=== PATIENT | female | born 1985 | race Caucasian/White ===

== ENCOUNTER 2021-06-12 17:42 | Emergency (ER) | payer OTHER, SELFPAY ==
[2021-06-12 17:48] VITALS: BP 150/93; PULSE 108; RESP 16; TEMP 36.8; O2SAT 100
--- NOTE | 2021-06-12 17:58 | ECG_ITS ---
Measurements Intervals [place] Rate: 107 P: 26 DC: 140 QRS: -1 QRSD: 76 T: 30 QT: 313 QTc: 419 Interpretive Statements SINUS TACHYCARDIA LOW QRS VOLTAGE IN PRECORDIAL LEADS [QRS DEFLECTION < 1.0 mV IN CHEST LEADS] ABNORMAL RHYTHM ECG NO PREVIOUS ECG AVAILABLE FOR COMPARISON Electronically Signed On 06-13-2021 17:07:55 CDT by Sorin Laws M.D.
[2021-06-12 17:59] VITALS: BP 150/93; PULSE 108; RESP 16; TEMP 36.8; O2SAT 100
--- NOTE | 2021-06-12 19:01 | ED.URI ---
HPI - URI/Sore Throat General Chief Complaint: Chest Pain Stated Complaint: Cough, chest congestion Time Seen by Provider: 06/12/21 18:52 Source: patient and RN notes reviewed Mode of arrival: ambulatory Limitations: no limitations and clinical condition History of Present Illness HPI Narrative: Patient presents today complaining of cough and chest congestion and tightness since yesterday with rhinorrhea. She also reports a low-grade fever up to 99. Denies shortness of breath or pains in the chest. 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 She took a dose of Tylenol for her elevated temperature. MD elicited complaint: cough Related Data Home Medications Medication Instructions Recorded Confirmed No Home Medications 06/12/21 06/12/21 Allergies Allergy/AdvReac Type Severity Reaction Status Date / Time No Known Allergies Allergy Verified 06/12/21 17:58 Review of Systems Review of Systems: CONSTITUTIONAL: Denies body aches, fever, chills, or sweats. EYES: Denies visual changes, redness, or discharge. ENT: Denies sore throat, or otalgia.+ Nasal congestion, rhinorrhea CARDIOVASCULAR: Denies chest pain, palpitations, or edema. RESPIRATORY: Denies dyspnea. + Cough, chest congestion, chest tightness GASTROINTESTINAL: Denies abdominal pain, nausea, vomiting, or diarrhea. GENITOURINARY: Denies dysuria or hematuria. SKIN: Denies rash, itching, or wounds. MUSCULOSKELETAL: Denies back pain, joint pain, or myalgia. NEUROLOGIC: Denies headache, numbness, tingling, or weakness. PSYCH: Denies depression or anxiety. [facility] Family History Family History Grandparent Family history of lung cancer Social History Social History Smoking status: Never smoker Alcohol intake: never Comments At time of signature, I have reviewed and agree with nursing past medical, surgical, social and family history unless otherwise noted. Please see nursing chart for further information. There is no relevant family history pertinent to the presenting complaint Exam Narrative: GENERAL: Well-appearing, well-nourished, and in no acute distress. HEAD: Normocephalic, atraumatic. EYES: EOMI. No redness or drainage. Conjunctivae normal. ENT: Mucous membranes pink and moist. Nares clear. No rhinorrhea. TMs normal bilaterally. Throat normal. Uvula midline. Moderate amount of postnasal drainage. NECK: Normal AROM. Supple. No lymphadenopathy. CHEST: No respiratory distress. Clear to auscultation. HEART: Regular rate and rhythm. No murmur appreciated. Normal peripheral pulses. EXTREMITIES: Normal range of motion. No edema. SKIN: Warm, dry, no rash. Capillary refill normal. Normal skin turgor. NEURO: No focal deficits. Alert and oriented x3. Gait steady. PSYCH: Normal affect. No signs of depression or anxiety. Course Course Level of Care: Express Care Visit Vital Signs Vital signs: Vital Signs Temperature 98.2 F 06/12/21 17:48 Pulse Rate 108 H 06/12/21 17:48 Respiratory Rate 16 06/12/21 17:48 Blood Pressure 150/93 H 06/12/21 17:48 Pulse Oximetry 100 06/12/21 17:48 Temperature 98.2 F 06/12/21 17:59 Pulse Rate 108 H 06/12/21 17:59 Respiratory Rate 16 06/12/21 17:59 Blood Pressure 150/93 H 06/12/21 17:59 Pulse Oximetry 100 06/12/21 17:59 Reviewed. Pt has been instructed to follow up with her PCP regarding her elevated blood pressure today. MDM - URI/Sore Throat Differential Diagnosis Differential diagnosis: Likely upper respiratory infection and bronchitis ECG Data EKG #1: ECG completion date: 06/12/21 ECG completion time: 18:06 Prior ECG tracings: not available for review Interpretation: Sinus tachycardia. Heart rate 107. TN interval 140 Critical Care Time Critical Care Time Critical Care Time: No Disch
== END 2021-06-12 19:13 | disposition home or self-care (01) ==
PROVIDERS: Emergency Provider Nurse Practitioner; PCP Nurse Practitioner Family
DX: J06.9 Acute upper respiratory infection, unspecified (principal); R00.0 Tachycardia, unspecified
CPT/HCPCS: 93005; 99213; G0463

== ENCOUNTER 2022-07-28 08:16 | Emergency (ER) | payer OTHER, SELFPAY ==
[2022-07-28 08:26] VITALS: BP 141/96; PULSE 87; RESP 16; TEMP 36.5; O2SAT 100
--- NOTE | 2022-07-28 08:27 | ED.EYEPROB ---
HPI - Eye Problem General Chief complaint: Eye Problems Stated complaint: EYE DRAINAGE Time Seen by Provider: 07/28/22 08:27 Source: patient Mode of arrival: ambulatory Limitations: no limitations History of Present Illness HPI Narrative: Sadaf is a 37-year-old female patient presenting to the clinic today with complaints of right eye drainage and itching x 1-2 days. 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 She denies any eye pain or fever. States that she is having yellow drainage coming from the right eye. Patient does wear contacts. Related Data Allergies Allergy/AdvReac Type Severity Reaction Status Date / Time No Known Allergies Allergy Verified 06/12/21 17:58 Review of Systems Review of Systems: Pertinent positives per HPI. Patient denies any fever, chills, rash, headache, visual changes, dizziness, cough, shortness of breath, chest pain, palpitations, nausea, vomiting, diarrhea, constipation, abdominal pain, or any urinary issues. [facility] Family History Family History Grandparent Family history of lung cancer Social History Social History Smoking status: Never smoker Alcohol intake: never Comments At the time of my signature, I reviewed and agree with the nursing past medical, surgical, social, and family history. There is no relevant family history pertinent to the patient complaint. Exam Narrative: General: Well-developed, well nourished, in no apparent distress Head: Normocephalic, atraumatic Eyes: Pupils equally round and reactive to light bilaterally, EOM intact, left sclera and conjunctive clear, red sclera and conjunctiva injected with yellow mucopurulent discharge, right lids mildly swollen Ears: TMs intact and clear, ear canals clear, no drainage, grossly hearing normal. Nose: Nares patent, no discharge, no inflammation, no sinus tenderness. Mouth: Oral pharynx without lesions or masses, good dentition, MMM. Neck: Supple, trachea midline, no enlargement of anterior or posterior cervical nodes, no thyroid masses or goiter palpable. Cardio: Regular rate and rhythm, s1 and s2 normal, no murmur appreciated. Resp: Clear to auscultation bilaterally, no rhonchi, rales, wheezing or rubs Course Course Emergency Course: Portions of this record may have been created with voice recognition software. Level of Care: Express Care Visit Vital Signs Vital signs: Vital Signs Temperature 36.5 C 07/28/22 08:26 Pulse Rate 87 07/28/22 08:26 Respiratory Rate 16 07/28/22 08:26 Blood Pressure 141/96 H 07/28/22 08:26 Pulse Oximetry 100 07/28/22 08:26 Temperature 36.5 C 07/28/22 08:26 Pulse Rate 87 07/28/22 08:26 Respiratory Rate 16 07/28/22 08:26 Blood Pressure 141/96 H 07/28/22 08:26 Pulse Oximetry 100 07/28/22 08:26 Vital signs reviewed MDM - Eye Problem MDM Narrative Medical decision making narrative: At the time of visit patient is resting comfortably on the exam table. I suspect patient has right conjunctivitis. She does wear contact. Instructed to throw her contacts away and not to use new contacts until infection is gone. Will send in prescription for ofloxacin eyedrops. Supportive measures were discussed with the patient she voiced understanding of discharge instructions and agrees to treatment plan. Differential Diagnosis Differential diagnosis: Likely corneal abrasion, conjunctivitis, acute iritis, periorbital cellulitis, subconjunctival hemorrhage and corneal ulcer Discharge Plan Discharge Clinical Impression: Acute conjunctivitis of right eye Qualifiers: Acute conjunctivitis type: bacterial Qualified Code(s): H10.31 - Unspecified acute conjunctivitis, right eye Patient Disposition: Home, Self-Care Condition: Stable Instructions: Antibiotic Form, Conjunctivitis (ED) A
== END 2022-07-28 08:35 | disposition home or self-care (01) ==
PROVIDERS: Emergency Provider Nurse Practitioner Family; PCP Nurse Practitioner Family
DX: H10.31 Unspecified acute conjunctivitis, right eye (principal); R03.0 Elevated blood-pressure reading, without diagnosis of hypertension; E11.9 Type 2 diabetes mellitus without complications
CPT/HCPCS: 99213; G0463

== ENCOUNTER 2023-06-27 18:34 | Emergency (ER) | payer OTHER, SELFPAY ==
[2023-06-27 18:40] VITALS: BP 147/93; PULSE 130; RESP 20; TEMP 37; O2SAT 100
--- NOTE | 2023-06-27 18:48 | ED.GENADULT ---
HPI - General Adult General Chief complaint: Upper Respiratory Infection Stated complaint: nausea/fever/nose/diarrhea Source: patient, RN notes reviewed and old records reviewed Mode of arrival: ambulatory Limitations: no limitations History of Present Illness HPI narrative: 38-year-old female presents to [facility] with complaints nausea this started Saturday night, patient states vomited 1 time on Saturday. Then Saturday started having fatigue and general malaise. Patient states Saturday started having fever and rhinorrhea. Patient states still is not feeling well. Patient denies any further vomiting. Related Data Home Medications Medication Instructions Recorded Confirmed metformin 500 mg tablet 500 mg PO BID 07/28/22 06/27/23 buspirone 7.5 mg tablet mg 06/27/23 tirzepatide 5 mg/0.5 mL 5 mg subcut WEEKLY 06/27/23 06/27/23 subcutaneous pen injector (Mounjaro) Allergies Allergy/AdvReac Type Severity Reaction Status Date / Time No Known Allergies Allergy Verified 06/27/23 18:49 Review of Systems Constitutional: Constitutional: Reports no additional constitutional complaints, Reports body ache(s), Denies chills, Reports fatigue, Denies fever(s) and Denies headache(s) Eyes: Eyes: Reports no additional eye complaints and Denies blurry vision ENT: Reports system reviewed and no additional complaints, except as documented, Denies vertigo, Denies dizziness, Denies ear discharge, Denies otalgia, Denies facial pain, Denies headache(s), Denies nasal congestion, Reports nasal discharge, Denies sinus pain, Denies sinus pressure and Denies sore throat Cardiovascular: Cardiovascular: Reports no additional cardiovascular complaints, Denies chest pain, Denies chest pain at rest, Denies rapid heart rate and Denies dyspnea Respiratory: Respiratory: Reports no additional respiratory complaints, Denies chest congestion, Denies cough, Denies pain on inspiration, Denies pain with cough and Denies dyspnea Gastrointestinal: Gastrointestinal: Denies abdominal pain, Denies diarrhea, Reports nausea and Reports vomiting Integumentary/Breasts: Skin/Breast: Denies rash Neurologic: Reports system reviewed and no additional complaints, except as documented, Denies vertigo, Denies dizziness and Denies headache(s) Endocrine: Endocrine: Denies fatigue PMFSH Family History Family History Grandparent Family history of lung cancer Social History Social History Smoking status: Never smoker Alcohol intake: never Comments At the time of my signature, I reviewed and agree with the nursing past medical, surgical, social, and family history. There is no relevant family history pertinent to the patient complaint. Exam Const: General: cooperative, healthy appearing, no acute distress and well nourished Nutritional Appearance: well nourished Orientation/consciousness: patient oriented x3 Limitations: no limitations HENMT: Head: normal to inspection and normocephalic Ears: external ears normal, TM's normal bilaterally, EAC's normal and mastoids normal Face/Nose/Sinus: normal facial exam Face and sinus: normal facial exam Mouth: Yes Normal oral and palatal mucosa present, Yes oropharynx normal and Yes moist mucous membranes Throat: tonsils normal, uvula midline and no uvular edema Eyes: General: appearance normal, both eyes and all related structures Sclera: sclerae normal Pupils: Equal, round and reactive pupils present Resp: Effort & Inspection: normal respiratory effort, able to speak in complete sentences, no audible wheezes, no cough, no respiratory distress and no retractions Auscultation: clear to auscultation bilaterally, no crackles, no rales, no rhonchi and no wheezes Cardio: Rate: regular rate Rhythm: regular rhythm GI: Inspection: normal to inspection, no edema and non-distended GI Palp: No abdominal tenderness
[2023-06-27 18:51] VITALS: BP 147/93; PULSE 130; RESP 20; TEMP 37; O2SAT 100
== END 2023-06-27 19:02 | disposition home or self-care (01) ==
PROVIDERS: Emergency Provider Registered Nurse; PCP Nurse Practitioner Family
DX: J10.1 Influenza due to other identified influenza virus with other respiratory manifestations (principal); Z20.822 Contact with and (suspected) exposure to COVID-19
CPT/HCPCS: 87426; 87804; 99213; G0463

== ENCOUNTER 2024-09-28 10:27 | Emergency (ER) | payer OTHER, SELFPAY ==
--- OUTSIDE RECORDS SUMMARY | 2024-09-28 10:29 | XMS_ITS | Clinical Summary ---
Author Organization [facility] Address [address] [place] [address] Phone Care Team Providers Care Correctional Sergeant Name Role Phone Marley Kirk APRN, ENGINEERING TEST MECHANIC Unavailable [phone] Helena Turcios APRN, ENGINEERING TEST MECHANIC Primary Care Provider [phone] Allergies No known active allergies Medications busPIRone (BUSPAR) 10 MG Tablet Take 1 Tablet by mouth 2 times daily. 4 Active metFORMIN (GLUCOPHAGE) 500 MG Tablet Take 1 Tablet by mouth 2 times daily. Active metoprolol tartrate (LOPRESSOR) 25 MG Tablet Take 1 Tablet by mouth 2 times daily. 180 Tablet 4 Active traMADol (ULTRAM) 50 MG TabletIndication s:Type 2 diabetes mellitus with other specified complication, unspecified whether fpc insulin use (HCC) Take 1 Tablet by mouth every 8 hours as needed for Moderate or more severe pain. 20 Tablet 4 Active Active Problems Problem Noted Date Diagnosed Date Sinus tachycardia 02/20/2024 Fatty liver 07/12/2016 Elevated LFTs 11/02/2015 ESR raised 05/02/2015 Neutrophilic leukocytosis 04/18/2015 White blood cell disorder Obesity Hypertension Factor V deficiency Elevated liver enzymes Diabetes mellitus Social History Tobacco Use Types Packs/Day Years Used Date Smoking Tobacco: Never Smokeless Tobacco: Never Alcohol Use Standard Drinks/Week Comments Yes 0 (1 standard drink = 0.6 oz pur e alcohol) occasionally [facility] Utilities Answer Date Recorded In the past 12 months has th e electric, gas, oil, or water company threatened to shut off services in your home? Patient declined 02/20/2024 Social Connection and Isolation Panel Answer Date Recorded In a typical week, how many times do you talk on the phone with family, friends, or neighbors? Patient declined 02/20/2024 How often do you get togethe r with friends or relatives? Patient declined 02/20/2024 How often do you attend sikh or restorationism serv ices? Patient declined 02/20/2024 Do you belong to any clubs o r organizations such as sikh groups, unions, fraternal or athletic groups, or school groups? Patient declined 02/20/2024 How often do you attend meet ings of the clubs or organizations you belong to? Patient declined 02/20/2024 Are you , , di vorced, , never , or living with a partner? Patient declined 02/20/2024 AUDIT-C Answer Date Recorded Q1: How often do you have a drink containing alc ohol? Patient declined 02/20/2024 Q2: How many drinks containi ng alcohol do you have on a typical day when you are drinking? Patient declined 02/20/2024 Q3: How often do you have si x or more drinks on one occasion? Patient declined 02/20/2024 Overall Financial Resource Strain (CARDIA) Answe r Date Recorded How hard is it for you to pa y for the very basics like food, housing, medical care, and heating? Patient declined 02/20/2024 [facility] - Occupational Stress Questionnaire Answer Date Recorded Do you feel stress - tense, restless, nervous, or anxious, or unable to sleep at night because your mind is troubled all the time - these days? Patient declined 02/20/2024 Exercise Vital Sign Answer Date Recorde d On average, how many days pe r week do you engage in moderate to strenuous exercise (like a brisk walk)? Patient declined On average, how many minutes do you engage in exercise at this level? Patient declined 02/20/2024 Hunger Vital Sign Answer Date Recorded Within the past 12 months, y ou worried that your food would run out before you got the money to buy more. Patient declined Within the past 12 months, t he food you bought just didn't last and you didn't have money to get more. Patient declined 07/2023 PRAPARE - Transportation Answer Date Re corded In the past 12 months, has l ack of transportation kept you from medical appointments or from getting medications? Patient declined 02/20/2024 In the past 12 months, has l ack of transportation kept you from meetings, work, or from getting things needed for daily living? Patient declined 02/20/2024 Housing Stability Vital Sign Answer Mert e Recorded In the last 12 months, was t here a time when you were not able to pay the mortgage or rent on time? Patient declined 02/20/20 24 In the past 12 months, how m any times have you moved where you were living? 1 02/20/2024 At any time in the past 12 m [facility], were you homeless or living in a residential (including now)? 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 Not on file Not on file Not on file Last Filed Vital Signs Vital Sign Reading Time Taken Comments Blood Pressure 145/84 02/21/2024 1:29 PM FILE CONVERSION OPERATOR Pulse 57 02/21/2024 1:29 PM FILE CONVERSION OPERATOR Temperature 37.1 C (98.7 F) 02/21/2024 3:44 PM FILE CONVERSION OPERATOR Respiratory Rate 16 02/21/2024 1:29 PM FILE CONVERSION OPERATOR Oxygen Saturation 100% 02/21/2024 1:29 PM FILE CONVERSION OPERATOR Inhaled Oxygen Concentration - - Weight 122.5 kg (270 lb) 02/20/2024 5:20 PM FILE CONVERSION OPERATOR Height 167.6 cm (5' 6) 02/20/2024 5:20 PM FILE CONVERSION OPERATOR Body Mass Index 43.58 02/20/2024 5:20 PM FILE CONVERSION OPERATOR Plan of Treatment Health Maintenance Due Date Last Done Comments Diabetes: Eye Exam 1984 Diabetes: Foot Exam 1984 Mammogram 1984 Human Papillomavirus (HPV) Immunization (1 - 3-dose series) 05/26/1999 Hepatitis B Immunization (1 of 3 - 19+ 3-dose series) 05/26/2003 Pneumococcal Immunization Combined (1 of 2 - PCV) 05/26/2003 Pap Smear 2005 Cervical Cancer Screening (CCS) 2014 HPV/Cotest 2014 SARS-COV-2 Immunization (2 - Roland risk series) 06/17/2020 05/20/2020 Discussion re Starting/Frequency of Mammograms 2024 Diabetes: Hemoglobin A1c 08/20/2024 024, 10/22/2014, 10/06/2014 Influenza Immunization (#1) 2024 Diabetes: Nephropathy Screening 02/19/2025 02/20/2024, 01/26/2019, 07/17/2017, Additional history exists Respiratory Syncytial Virus (RSV) Immunization (Adult) (1 - 1-dose 75+ series) 05/26/2059 Hepatitis C Virus (HCV) Screening Completed 12/19/2015, 10/06/2014 DTaP/Tdap/Td Immunization Discontinued 08/14/2018 TdaP Immunization Completed 08/14/2018 Meningococcal Immunization (ACWY) Aged Out No longer eligible based on patient's age to complete this topic Rotavirus Immunization Aged Out No lo nger eligible based on patient's age to complete this topic Procedures Procedure Name Priority Date/Time Associated Diagnosis Comments CMP (COMPREHENSIVE METABOLIC PANEL) STAT 02/20/2024 6:06 AM FILE CONVERSION OPERATOR HEMOGLOBIN A1C W/ ESTIMATED GLUCOSE Routine 02/20/2024 6:06 AM FILE CONVERSION OPERATOR HEPATITIS C ANTIBODY Routine 12/19/2015 12:14 PM CDT Elevated LFTs Neutrophilic leukocytosis ESR raised from Last 3 Months or Most Recently Relevant to Health Maintenance Results * (ABNORMAL) Hemoglobin A1C (if indicated) (02/20/2024 6:06 AM FILE CONVERSION OPERATOR) HGB-A1C 9.8(H) 4.0 - 6.0 % 02/20/2024 9:52 PM FILE CONVERSION OPERATOR [facility] Est Average Glucose 234.6 mg/dL 02/20/2024 9:52 PM [facility] Blood Venipuncture / Unknown 02/20/2024 6:06 AM FILE CONVERSION OPERATOR 02/20/2024 6:15 AM FILE CONVERSION OPERATOR Narrative [facility] - 02/20/2024 9:52 PM FILE CONVERSION OPERATOR HEMOGLOBIN A1C: DIABETIC PATIENTS: WELL-CONTROLLED: 6.2 - 7.0 INTERMEDIATE WELL-CONTROLLED: 7.0 - 9.0 POORLY-CONTROLLED: >9.0 us Jl Corrales BRONC BUSTER, ENGINEERING TEST MECHANIC CHEMISTRY ORDERABLES Fi nal Result [facility] [address] [place] [address] * (ABNORMAL) CMP (Comprehensive Metabolic Panel) (02/20/2024 6:06 AM FILE CONVERSION OPERATOR) SODIUM 135(L) 136 - 145 mmol/L 02/20/2024 6:33 AM [facility] POTASSIUM 3.8 3.5 - 5.1 mmol/L 02/20/2024 6:33 AM [facility] CHLORIDE 103 98 - 107 mmol/L 02/20/2024 6:33 AM [facility] CO2, VENOUS 18(L) 22 - 30 mmol/L 02/20/2024 6:33 AM [facility] ANION GAP 17.8 <18.0 mmol/L 02/20/2024 6:33 AM [facility] GLUCOSE 311(H) 70 - 99 mg/dL 02/20/2024 6:33 AM [facility] BUN 12 5 - 18 mg/dL 02/20/2024 6:33 AM [facility] CREATININE, BLOOD 0.63 0.60 - 1.00 mg/dL 02/20/2024 6:33 AM [facility] BUN/CREATININE RATIO 19 12 - 20 ratio 02/20/2024 6:33 AM [facility] TOTAL PROTEIN 7.7 6.3 - 8.2 g/dL 02/20/2024 6:33 AM FILE CONVERSION OPERATOR [facility] ALBUMIN 4.0 3.5 - 5.0 g/dL 02/20/2024 6:33 AM [facility] A/G RATIO 1.1 1.0 - 2.2 02/20/2024 6:33 AM [facility] CALCIUM 9.4 8.7 - 10.5 mg/dL 02/20/2024 6:33 AM FILE CONVERSION OPERATOR [facility] T BILI 0.8 0.2 - 1.2 mg/dL 02/20/2024 6:33 AM [facility] SGOT (AST) 29 5 - 34 U/L 02/20/2024 6:33 AM [facility] SGPT (ALT) 46 0 - 55 U/L 02/20/2024 6:33 AM [facility] ALKALINE PHOSPHATASE 96 40 - 150 U/L 02/20/2024 6:33 AM [facility] GFR, ESTIMATED >60 >=60 02/20/2024 6:33 AM [facility] Comment: Creatinine Clearance is the preferred criteria for selecting drug dose adjustments in renally impaired patients. The GFR is provided as additional pertinent clinical information. GFR is reported in mL/min/1.73 sq m. Calculation based on the Chronic Kidney Disease Epidemiology Collaboration (CKD- EPI) equation refit without adjustment for race. GFR, EST. >60 >=60 024 6:33 AM FILE CONVERSION OPERATOR [facility] GFR, EST. NONAFRICAN >60 >=60 02/20/2024 6:33 AM [facility] Blood Venipuncture / Unknown 02/20/2024 6:06 AM FILE CONVERSION OPERATOR 02/20/2024 6:15 AM FILE CONVERSION OPERATOR us Gordy Cano DO CHEMISTRY ORDERABLES Fi nal Result [facility] [address] [place] [address] * HEPATITIS C ANTIBODY (12/19/2015 12:14 PM CDT) hepatitis C antibody 0.09 <1 S/CO 12/19/2015 11:12 PM CDT [facility] Comment: Signal/Cutoff ratio < 0.79 is Nondetected Signal/Cutoff ratio 0.80-0.99 is Grayzone Signal/Cutoff ratio > 0.99 is Detected Supplemental assays are recommended if signal/cutoff ratio is >/=1.00. Signal/cutoff ratio result >/= 5.00 is 97% predictive of positivity for recombinant immunoblot assay (RIBA) and will be reported to the [place] Department of Public Health as required. Blood specimen (specimen) Venipuncture / Unknown 12/19/2015 12:14 PM CDT 12/19/2015 1:26 PM CDT us Duncan Cosby MD CHEMISTRY ORDERABLES Health System al Result [facility] [address] [place] [address], from Last 3 Months or Most Recently Relevant to Health Maintenance Insurance [facility] Advance Directives * Full Code (Latest Code Status on File) Date Activated Date Inactivated Comments 02/20/2024 9:12 PM CPR-Full Treat ment: FULL ARREST: Attempt Resuscitation/CPR wit intubation and mechanical ventilation. PRE-ARREST: Use entire range of life support measures to stabilize the patient. Care Teams Correctional Sergeant Relationship Specialty Start Date End Date Turcios, Helena, BRONC BUSTER, [place] [address] [place] [address] PCP - General Family Medicine 07/17/17 Marley Kirk APRN, [place] Nurse Practitioner Advanced Practice Nurse 01/24/16
--- OUTSIDE RECORDS SUMMARY | 2024-09-28 10:29 | XMS_ITS | Encounter Summary ---
Author Organization [facility] HealthCare Address [address] [address] Phone Care Team Providers Care Escalator Attendant Name Role Phone Marley Kirk APRN, CNP Unavailable [phone] Helena Turcios APRN, CNP Primary Care Provider [phone] Reason for Referral * Radiology Services (Routine) - Closed Specialty Diagnoses / Procedures Referred By Latoya [email or web address] Referred To Contact Radiology Diagnoses Cough Procedures XR CHEST 2 VIEWS Helena Turcios APRN, CNP [address] [place] [address] Phone: tel: fax: Referral ID Status Reason Start Date Expiration Date Visits Re quested Visits Authorized [id number] Closed 06/13/2021 1 1 Encounter Details Date Type Department Care Team (Late st Contact Info) Description 06/13/2021 Transcribe Orders [facility] Patient Access Admitting [address] [place] [id number] Helena Turcios APRN, CNP [address] [place] [address] Cough (Primary Dx) Social History Tobacco Use Types Packs/Day Years Used Date Smoking Tobacco: Never Smokeless Tobacco: Never Alcohol Use Standard Drinks/Week Comments Yes 0 (1 standard drink = 0.6 oz pur e alcohol) occasionally Comments No Sex and Gender Information Value Date Recorded Sex Assigned at Not on file Legal Sex Female 9:52 PM CDT Gender Identity Not on file Sexual Orientation Not on file 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 No / Unsure 06/13/2021 1:46 PM CDT documented as of this encounter Plan of Treatment Not on file documented as of this encounter Results * XR CHEST 2 VIEWS (06/13/2021 2:07 PM CDT) Anatomical Region Laterality Modality Chest N/A Digital Radiogra phy 06/14/2021 9:03 AM CDT Impressions 06/14/2021 9:06 AM CDT IMPRESSION: Patchy opacities left mid lung most likely due to pneumonia. Clinical correlation, 6 week follow-up is needed to ensure clearance. Narrative 06/14/2021 9:06 AM CDT EXAM DESCRIPTION: XR CHEST 2 VIEWS REASON FOR STUDY: Cough, unspecified TECHNIQUE: Frontal and lateral radiographic views of the chest acquired. COMPARISON: None. FINDINGS: LUNGS/PLEURA: Patchy opacities are seen in the left mid lung most likely due to pneumonia. No pleural effusion or pneumothorax. HEART/MEDIASTINUM: Heart size is normal. Normal mediastinal and hilar contours. HARDWARE/LINES/TUBES: None. BONES: No acute findings. OTHER: No other significant finding. THIS IS AN ELECTRONICALLY VERIFIED FINAL REPORT 06/14/2021 9:03 AM - Electronically signed by Dung Cortez M.D. CH: CHENCHO Report ID: [id number] Reading Location: [id number] Procedure Note Dung Cortez Jr., MD - 06/14/2021 EXAM DESCRIPTION: XR CHEST 2 VIEWS REASON FOR STUDY: Cough, unspecified TECHNIQUE: Frontal and lateral radiographic views of the chest acquired. COMPARISON: None. FINDINGS: LUNGS/PLEURA: Patchy opacities are seen in the left mid lung most likely due to pneumonia. No pleural effusion or pneumothorax. HEART/MEDIASTINUM: Heart size is normal. Normal mediastinal and hilar contours. HARDWARE/LINES/TUBES: None. BONES: No acute findings. OTHER: No other significant finding. THIS IS AN ELECTRONICALLY VERIFIED FINAL REPORT 06/14/2021 9:03 AM - Electronically signed by Dung Cortez M.D. CH: CHENCHO Report ID: [id number] Reading Location: [id number] IMPRESSION: Patchy opacities left mid lung most likely due to pneumonia. Clinical correlation, 6 week follow-up is needed to ensure clearance. Helena Turcios APRN, CNP IM DIAGNOSTIC ORDERABLES Final Result documented in this encounter Visit Diagnoses Diagnosis Cough- Primary Cough documented in this encounter Care Teams Escalator Attendant Relationship Specialty Start Date End Date Helena Turcios APRN, CNP [address] [place] [address] PCP - General Family Medicine 07/17/17 Marley Kirk APRN, CNP Nurse Practitioner Advanced Practice Nurse 01/24/16 documented as of this encounter
--- OUTSIDE RECORDS SUMMARY | 2024-09-28 10:30 | XMS_ITS | Data Portability ---
Author Organization [facility] Address [address] [place] [address] Care Team Providers Care Cross Tie Turner Name Role Phone HELENA NIELSEN Primary Care Provider Unavailabl e Assessment No assessment recorded. Plan of Treatment Reminders Order Date Submit Date Provider Last Modified By Organization Details Last Modified Time Details Appointments ANY 15 2024 03:15P M Helena Nielsen, BUS WASHER, TALENT ACQUISITION COORDINATOR-C Not available Not available Not available Lab HbA1c (hemog lobin A1c), blood 2024 025 In-Office Order, Internal Use Only DO Not Attach Compendium DO Not Attach Compendium, Do Not Delete/merge, [id number] 09/07/2024 16:31:39 cytolo gy report , thin prep, smear or scrapi ng, cervic al or vagina l 2024 025 ASHISH [facility] (Centralized Electronic Ordering - All Locations), Patient Can Go To The Location Of Their Choice, [id number] 07/08/2024 16:32:07 HbA1c (hemog lobin A1c), blood 2024 025 In-Office Order, Internal Use Only DO Not Attach Compendium DO Not Attach Compendium, Do Not Delete/merge, [id number] 06/03/2024 16:26:08 CMP, serum or plasma 2024 025 [email or web address] [facility], [address], [place], [address], 09/17/2024 11:15:04 lipid panel, serum 2024 025 [facility], [address], [place], [address], 09/17/2024 11:15:04 CBC w/ auto diff 2024 025 [email or web address], [address], [place], [address], 09/17/2024 11:15:04 HbA1c (hemog lobin A1c), blood 2024 025 [facility], [address], [place], [address], 09/17/2024 11:15:04 microa lbumin /creat inine, mass ratio, urine 2024 025 [facility], [address], [place], [address], 09/17/2024 11:15:05 TSH, serum or plasma 2024 025 [facility], [address], [place], [address], 09/17/2024 11:15:05 vitami n D, 25-hyd rupinder, total, serum 2024 025 [facility], [address], [place], [address], 09/17/2024 11:15:05 pap, IG + HPV mRNA E6/E7 + reflex HPV (16+18 +45) - Reflex with HPV 2024 025 [email or web address] [facility], [address], [place], [address], 06/03/2024 17:26:49 Referral gyneco logic surger y referr al 2024 025 brianna devi [facility] Churn Operator Margarine, [address] [facility], [place] [address], [place], [address], 08/27/2024 16:53:02 Procedures None record ed. Surgeries None record ed. Imaging None record ed. Medication Orders cetiri zine 10 mg tablet 2024 025 [facility], [address] [place] [address], [id number], 09/07/2024 16:31:49 metfor min 500 mg tablet 2024 025 [facility], [address] [place] [address], [address], 09/07/2024 16:31:53 Mounja ro 5 mg/0.5 mL subcut aneous pen inject or 2024 025 [facility], [address] [place] [address], [id number], 09/07/2024 16:31:47 Vitami n D2 1,250 mcg (50,00 0 unit) capsul e 2024 025 [facility], [address] [place] [address], [id number], 09/07/2024 16:31:45 buspir one 10 mg tablet 2024 025 [facility], [address] [place] [address], [id number], 09/07/2024 16:31:47 lisino pril 5 mg tablet 2024 025 [facility], [address] [place] [address], [id number], 09/07/2024 16:31:49 metopr olol tartra te 25 mg tablet 2024 [facility], [address] [place], [address], 09/07/2024 16:31:51 famoti dine 20 mg tablet [address] [facility], [address] [place], [address], 09/07/2024 16:40:42 cetiri zine 10 mg tablet 2024 [facility], [address] [place] [address], [id number], 06/03/2024 16:26:19 metfor min 500 mg tablet 2024 [facility], [address] [place] [address], [id number], 06/03/2024 16:26:17 Mounja ro 5 mg/0.5 mL subcut aneous pen inject or 2024 [facility], [address] [place] [address], [id number], 06/03/2024 16:26:17 Vitami n D2 1,250 mcg (50,00 0 unit) capsul e 2024 [facility], [address] [place], [address], 06/03/2024 16:26:16 buspir one 10 mg tablet [address] [facility] [address] [facility], [address] [place], [address], 06/03/2024 16:26:25 lisino pril 5 mg tablet 2024 [facility], [address] [place] [address], [address], 06/03/2024 18:32:08 metopr olol tartra te 25 mg tablet 2024 025 [facility], [address] [place], [address], 06/03/2024 18:32:10 famoti dine 20 mg tablet 2024 025 [facility], [address] [place], [address], 06/03/2024 16:26:19 Patient TargetsNo targets recorded. Patient Instructions Encounter Date Encounter Id Patient Instructions Last Modified By Organization Details Last Modified Time 04/08/2024 [id number] A healthy lifestyle: care instructions [email or web address] Not available 04/08/2024 16:09:56 04/22/2024 [id number] A healthy lifestyle: care instructions Not available 04/22/2024 15:24:41 06/03/2024 [id number] allergies: care instructions Not available 06/03/2024 16:26:08 learning about type 2 diabetes Not available 06/03/2024 16:26:08 type 2 diabetes: care instructions Not available 06/03/2024 16:26:08 learning about high blood pressure Not available 06/03/2024 16:26:49 Eczema: Care Instructions Not available 06/03/2024 18:30:36 Needs to see eye drAndry david. Increase activity level to get exercise most days of the week. Work on eating more fresh fruit, veggies and lean protein and less packaged foods. Cut back on the fatty foods, add fish oil or omega three fatty acids; red yeast rice may also help. Drink more water! Take all medications as prescribed. Keep appointments with PCP and all specialists. Not available 06/03/2024 15:56:32 f/u 3 months DWP barriers to care: none Not available 06/03/2024 15:56:34 07/06/2024 [id number] A healthy lifestyle: care instructions Not available 07/06/2024 17:35:16 09/07/2024 [id number] allergies: care instructions Not available 09/07/2024 16:31:39 learning about type 2 diabetes Not available 09/07/2024 16:31:38 type 2 diabetes: care instructions Not available 09/07/2024 16:31:39 learning about high blood pressure Not available 09/07/2024 16:31:39 varicose veins: care instructions Not available 09/07/2024 16:49:58 A healthy lifestyle: care instructions Not available 09/07/2024 16:54:52 Eczema: Care Instructions Not available 09/07/2024 16:31:39 Needs to see eye drAndry yearly. Increase activity level to get exercise most days of the week. Work on eating more fresh fruit, veggies and lean protein and less packaged foods. Cut back on the fatty foods, add fish oil or omega three fatty acids; red yeast rice may also help. Drink more water! Take all medications as prescribed. Keep appointments with PCP and all specialists. Not available 09/07/2024 16:28:16 f/u 3 months DWP barriers to care: none Not available 09/07/2024 16:28:18 Reason for Referral Gynecologic Surgery Referral for Uterine fibroid polyp Referring Physician: Zach Cameron, TRANSPORTATION LEAD, Encounter Date: 04/08/2024 Results Created Date Observation Date Name Description Value Unit Range Abnormal Flag Note LastModifiedBy Organization Detail LastModifiedTime 06/04/1906/03/2024 HbA1c (hemo globi n A1c), blood HbA1c 9.5 Not Available In-Office Order Internal Use Only DO Not Attach Compendium DO Not Attach Compendium, Do Not Delete/merge, [id number] 06/03/2024 15:56:46 07/07/1907/07/2024 IGP, APTIM A HPV, RFX 16/18 ,45 HPV aptima NEGATI VE negati ve This nucle ic acid ampli ficat ion test detec ts fourt een high- risk HPV types (16,1 8,31, 33,35 ,39,4 5,51, 52,56 ,58,5 9,66, 68) witho ut diffe renti ation . Not Available [facility] ([facility]) [address] [place], [address], 07/08/2024 16:32:07 07/07/19 25 07/08/2024 IGP, APTIM A HPV, RFX 16/18 ,45 diagnosis: RAMIREZ BELLO WON FOR INTRA EPITH ELIAL LESIO N OR MELVIN DIANA . Not Available [facility] ([facility]) [address] [place], [address], 07/08/2024 16:32:07 07/07/19 25 07/08/2024 IGP, APTIM A HPV, RFX 16/18 ,45 specimen adequacy: RAMIREZ Hare Satis facto ry for evalu ation . Endoc ervic al and/o r squam ous metap lasti c cells (endo cervi irish compo nent) are prese nt. Not Available [facility] ([facility]) [address] [facility], [place], [address], 07/08/2024 16:32:07 07/07/19 25 07/08/2024 IGP, APTIM A HPV, RFX 16/18 ,45 clinician provided ICD10: RAMIREZ Hare Z01.4 19 Not Available [facility] ([facility]) [address] [place], [address], 07/08/2024 16:32:07 07/07/19 25 07/08/2024 IGP, APTIM A HPV, RFX 16/18 ,45 performed by: RAMIREZ Santamaria , Cytol ogist (ASCP ) Not Available [facility] ([facility]) [address] [place], [address], 07/08/2024 16:32:07 07/07/19 25 07/08/2024 IGP, APTIM A HPV, RFX 16/18 ,45 . . Not Available [facility] ([facility]) [address] [place], [address], 07/08/2024 16:32:07 07/07/19 25 07/08/2024 IGP, APTIM A HPV, RFX 16/18 ,45 note: COMMEN T The Pap smear is a scree junior test desig adina to aid in the detec tion of tony ligna nt and malig nant condi tions of the uteri ne cervi x. It is not a diagn ostic proce dure and shoul d not be used as the sole means of detec ting cervi irish cance r. Both false -posi tive and false -nega tive repor ts do occur . Not Available [facility] ([facility]) [address] [facility], [place], [address], 07/08/2024 16:32:07 07/07/19 25 07/08/2024 IGP, APTIM A HPV, RFX 16/18 ,45 test methodology: COMMEN T This liqui d based ThinP rep(R ) pap test was scree adina with the use of an image guide d dorian combs. Not Available [facility] ([facility]) [address] [place], [address], 07/08/2024 16:32:07 07/07/19 25 07/08/2024 IGP, APTIM A HPV, RFX 16/18 ,45 HPV genotype reflex COMMEN T Crite melina not met, HPV Genot ype not perfo rmed. Not Available [facility] ([facility]) [address] [place], [address], 07/08/2024 16:32:07 09/08/19 25 09/07/2024 HbA1c (hemo globi n A1c), blood HbA1C 10.2 % Not Available In-Office Order Internal Use Only DO Not Attach Compendium DO Not Attach Compendium, Do Not Delete/merge, [id number] 09/07/2024 16:30:50 04/08/19 25 02/20/2024 US, pelvi s, compl ete No observ ation record ed. [email or web address] Not Available 2024 12:13:32 04/08/19 25 02/20/2024 CT, abdom en + pelvi s, w/ contr ast No observ ation record ed. [email or web address] Not Available 2024 12:14:25 Result Notes None recorded. Problems Name Problem SNOMED Code Status Onset Date Resolution Date Notes Provider Name and Address Organization Details Recorded Time Essential hypertensio n 19217480 Active 2017 Helena Nielsen APN, FNP-C Attn: Eveliamarie mendez,[address] [facility], [place], [address], [facility] - [facility] 8 14:43:02 Morbid obesity 293946615 Active 2017 Helena Nielsen APN, FNP-C Attn: Eveliamarie g,[address] [facility], [place], [address], [facility] - [facility] 8 14:43:04 Allergic rhinitis 39387686 Active 2017 Helena Nielsen APN, FNP-C Attn: Eveliamarie g,[address] [facility], [place], [address], [place] - [facility] 8 14:43:06 Low back pain 403223336 Active 2017 Helena Nielsen APN, FNP-C Attn: Eveliamarie g,[address] [facility], [place], [address], [facility] - [facility] 8 09:06:04 Loss of hair 361769242 Active 2017 Helena Nielsen APN, FNP-C Attn: Eveliain g,[address] [facility], [place], [address], [place] - [facility] 8 09:08:46 Obesity 830250143 Active 2021 Helena Nielsen APN TALENT ACQUISITION COORDINATOR-C Attn: Eveliain g,[address] [facility], [place], [address], [place] - [facility] 2 16:07:52 Vitamin D deficiency 00425987 Active 2021 Helena Nielsen APN TALENT ACQUISITION COORDINATOR-C Attn: Charisse mendez,[address] [facility], [place], [place], [address] [place] [address] 2, [place] - [facility] 2 11:23:34 Type 2 diabetes mellitus 77579865 Active 2021 Helena Nielsen APN, TALENT ACQUISITION COORDINATOR-C Attn: Charisse mendez,[address] [facility], [place], [place], [address] [place] [address] 2, [place] - [facility] 2 11:23:45 Impacted cerumen in left ear 1331125774547 101 Active 2022 Helena Nielsen APN TALENT ACQUISITION COORDINATOR-C Attn: Charisse mendez,[address] [facility], [place], [place], [address] [place] [address], [facility] - [facility] 3 16:53:14 Generalized anxiety disorder 86281988 Active 2022 Helena Nielsen APN TALENT ACQUISITION COORDINATOR-C Attn: Charisse mendez,[address] [facility], [place], [place], [address] [place] [address] 2, [place] - [facility] 3 16:19:42 Wheezing 80445835 Active 2023 FABRICIO CABRERA MD Attn: Charisse mendez,[address] [facility], [place], [place], [address] [place] [address] 2, [place] - [facility] 4 16:36:43 Gastroesoph ageal reflux disease without esophagitis 965845328 Active 2023 Helena Nielsen APN, FNP-C Attn: Charisse mendez,[address] [place], [place], [address] [place] [address] 2, [place] - [facility] 4 16:22:17 Uterine fibroid polyp 319930624 Active 2023 Helena Nielsen APN, FNP-C Attn: Charisse mendez,[address] [place], [place], [address] [place] [address] 2, [place] - [facility] 4 17:26:39 Varicose vein of lower leg Active 2024 Helena Nielsen APN TALENT ACQUISITION COORDINATOR-C Attn: Charisse mendez,[address] [facility], [place], [address], [facility] - SI 16:49:43 Problem Notes None recorded. Procedures Surgical History Date Name Laterality Status Provider Name and Address Organization Details Recorded Time 07/07/19 25 Date of Last Pap Smear completed Eliane Gentile [place] - [facility] 07/06/2024 16:50:18 08/17/19 23 Cerumen Removal completed Helena Nielsen APN, TALENT ACQUISITION COORDINATOR-C Attn: Accounting, [address] [facility], [place], [address], [facility] - [facility] 08/16/2022 16:52:07 02/06/20 22 Cerumen Removal completed Helena Nielsen APN, TALENT ACQUISITION COORDINATOR-C Attn: Accounting, [address] [place], [address], [facility] - [facility] 02/05/2022 23:24:13 11/15/19 18 Cerumen Removal completed Helena Nielsen APN, TALENT ACQUISITION COORDINATOR-C Attn: Accounting, [address] [place], [address], [facility] - [facility] 11/14/2017 09:40:25 03/18/19 10 Cholecystectomy completed Roselyn Acosta [place] - [facility] 08/13/2019 16:20:41 Imaging Results None recorded. Procedure Notes None recorded. Medical Equipment None Reported. Allergies No known drug allergies Medications Name Sig Start Date Stop Date Status Note LastModified by Organization Details LastModified Time eq space chamber anti-static franchesca 05/26 completed Not Available Not Available Not Available amoxicillin 500 mg capsule TAKE 1 CAPSULE BY MOUTH TWICE DAILY FOR 10 DAYS 02/14 completed Not Available Not Available Not Available atorvastati n 40 mg tablet 05/15 completed Not Available Not Available Not Available buspirone 5 mg tablet TAKE 1 TABLET BY MOUTH TWICE DAILY 05/26 completed Not Available Not Available Not Available metformin 500 mg tablet Take 1 tablet twice a day by oral route. 2024 active Not Available Not Available Not Avai lable cetirizine 10 mg tablet Take 1 tablet every day by oral route. 2024 active Not Available Not Available Not Avai lable azithromyci n 250 mg tablet TAKE 2 TABLETS (500 MG) BY ORAL ROUTE ONCE DAILY FOR 1 DAY THEN 1 TABLET (250 MG) BY ORAL ROUTE ONCE DAILY FOR 4 DAYS 05/09 completed Not Available Not Available Not Available ibuprofen 800 mg tablet TAKE 1 TABLET BY MOUTH EVERY 8 HOURS NEEDED WITH FOOD FOR PAIN, FEVER, OR SWELLING. active Not Available Not Available No t Available ofloxacin 0.3 % eye drops INSTILL 1 DROP INTO RIGHT EYE 4 TIMES DAILY FOR 7 DAYS 08/16 completed Not Available Not Available Not Available fluconazole 150 mg tablet Take 1 tablet by oral route. 08/12 completed Not Available Not Available Not Available benzonatate 200 mg capsule Take 1 capsule 3 times a day by oral route for 10 days. 08/14 completed Not Available Not Available Not Available ondansetron HCl 4 mg tablet 05/15 completed Not Available Not Available Not Available prednisone 20 mg tablet Take 1 tablet twice a day by oral route. 02/09 completed Not Available Not Available Not Available Tubersol 5 tub. unit/0.1 mL intradermal injection solution Administe r .1ml interderm ally 09/10 completed Not Available Not Available Not Available Debrox 6.5 % ear drops INSTILL 5 DROPS INTO AFFECTED EAR(S) BY OTIC ROUTE 2 TIMES PER DAY for 4 days 03/21 completed Not Available Not Available Not Available atenolol 25 mg tablet 05/15 completed Not Available Not Available Not Available Space Chamber USE DIRECTED 05/26 completed Not Available Not Available Not Available acyclovir 400 mg tablet 08/12 completed prn Not Available Not Available Not Available sulfamethox azole 800 mg-trimetho prim 160 mg tablet 02/09 completed Not Available Not Available Not Available tramadol 50 mg tablet TAKE 1 TABLET BY MOUTH EVERY 8 HOURS NEEDED FOR MODERATE OR MORE SEVERE PAIN 06/03 completed Not Available Not Available Not Available triamcinolo ne acetonide 0.1 % topical cream 08/12 completed Not Available Not Available Not Available amoxicillin 875 mg tablet 05/15 completed Not Available Not Available Not Available famotidine 20 mg tablet Take 1 tablet twice a day by oral route as needed. 2024 active Not Available Not Available Not Avai lable dicyclomine 20 mg tablet 05/15 completed Not Available Not Available Not Available benzonatate 100 mg capsule TAKE 1 CAPSULE BY MOUTH THREE TIMES DAILY NEEDED 05/26 completed Not Available Not Available Not Available cephalexin 500 mg capsule TAKE 1 CAPSULE BY MOUTH EVERY 6 HOURS FOR 10 DAYS 04/25 completed Not Available Not Available Not Available buspirone 10 mg tablet Take 1 tablet twice a day by oral route. 2024 active Not Available Not Available Not Avai lable polymyxin B sulfate 10,000 unit-trimet hoprim 1 mg/mL eye drops INSTILL 1 DROP INTO AFFECTED EYE(S) EVERY 6 HOURS FOR 7 DAYS 07/07 completed Not Available Not Available Not Available losartan 25 mg tablet 05/15 completed Not Available Not Available Not Available hydrochloro thiazide 12.5 mg capsule 08/12 completed prn Not Available Not Available Not Available buspirone 7.5 mg tablet Take 1 tablet twice a day by oral route. 03/02 completed Not Available Not Available Not Available montelukast 10 mg tablet Take 1 tablet every day by oral route at bedtime. 04/14 completed Not Available Not Available Not Available lisinopril 5 mg tablet Take 1 tablet every day by oral route. 2024 active Not Available Not Available Not Avai lable hydrochloro thiazide 25 mg tablet Take 1 tablet every day by oral route. 04/14 completed Not Available Not Available Not Available methylpredn isolone 4 mg tablets in a dose pack Take 1 dose pk by oral route as directed. 11/03 completed Not Available Not Available Not Available albuterol sulfate HFA 90 mcg/actuati on aerosol inhaler Inhale 2 puffs every 4-6 hours by inhalatio n route as needed. 03/02 completed PRN Not Available Not Available Not Available Vitamin D2 1,250 mcg (50,000 unit) capsule Take 1 capsule every week by oral route. 2024 active Not Available Not Available Not Avai lable ondansetron 4 mg disintegrat ing tablet TAKE 1 TABLET BY MOUTH TWICE A DAY NEEDED FOR NAUSEA 03/02 completed Not Available Not Available Not Available fluticasone propionate 50 mcg/actuati on nasal spray,suspe nsion USE 1 SPRAY(S) IN EACH NOSTRIL ONCE DAILY 03/02 completed Not Available Not Available Not Available atenolol 50 mg tablet 08/13 completed Not Available Not Available Not Available amoxicillin 875 mg-buster combs clavulanate 125 mg tablet TAKE 1 TABLET BY MOUTH EVERY 12 HOURS FOR 5 DAYS 07/07 completed Not Available Not Available Not Available metoprolol tartrate 25 mg tablet Take 1 tablet twice a day by oral route. 2024 active Not Available Not Available Not Avai lable nitrofurant oin monohydrate /macrocryst als 100 mg capsule TAKE 1 CAPSULE BY MOUTH EVERY 12 HOURS FOR 5 DAYS 07/07 completed Not Available Not Available Not Available Trulicity 1.5 mg/0.5 mL subcutaneou s pen injector INJECT 1.5MG SUBCUTANE OUSLY EVERY WEEK 08/16 completed Not Available Not Available Not Available Trulicity 0.75 mg/0.5 mL subcutaneou s pen injector INJECT 1 SYRINGE SUBCUTANE OUSLY ONCE A WEEK 02/05 completed Not Available Not Available Not Available ID NOW COVID-19 Test Kit TEST DIRECTED TODAY 11/03 completed Not Available Not Available Not Available Trulicity 3 mg/0.5 mL subcutaneou s pen injector INJECT 3 MG SUBCUTANE OUSLY EVERY WEEK 02/14 completed Not Available Not Available Not Available Mounjaro 5 mg/0.5 mL subcutaneou s pen injector Inject 5 mg every week by subcutane ous route. 2024 active Not Available Not Available Not Avai lable Mounjaro 2.5 mg/0.5 mL subcutaneou s pen injector active Not Available Not Available Not Available Vitals Date Recorded Body height Body mass index (BMI) Body weight Systolic And Diastolic Provider Name and Address Organization Details Last Updated DateTime 04/08/2024 167.64 cm 42.6 kg/m2 057634.39 g 130/83 mm[Hg] Chelsea Martin [place] - [facility] 04/08/2024 14:04:21 Date Recorded Body height Body mass index (BMI) Body weight Systolic And Diastolic Provider Name and Address Organization Details Last Updated DateTime 04/22/2024 167.64 cm 43.2 kg/m2 405522.6 g 129/85 mm[Hg] Chelsea Martin MA [facility] 04/22/2024 14:11:34 Date Recorded Body height Body mass index (BMI) Body weight Respiratory rate Oxygen saturation Oxygen saturation in Arterial blood by Pulse oximetry Heart rate Systolic And Diastolic Provider Name and Address Organization Details Last Updated DateTime 167.64 cm 43.4 kg/m2 616882. 35 g 16 /min 96 % 96 % 102 /min 130/84 mm[Hg] MARGARITA Ruiz [facility] 15:48:27 Date Recorded Body height Body mass index (BMI) Body weight Heart rate Systolic And Diastolic Provider Name and Address Organization Details Last Updated DateTime 07/06/2024 167.64 cm 43.5 kg/m2 947085.7 8 g 112 /min 134/87 mm[Hg] Eliane Gentile [facility] 07/06/2024 17:19:30 Date Recorded Body mass index (BMI) Body weight Provider Name and Address Organization Details Last Updated DateTime 09/07/2024 43.5 kg/m2 329734.75 g Helena Nielsen APN, TALENT ACQUISITION COORDINATOR-C Attn: Accounting,[address] [place], [address], [facility] 09/07/2024 16:29:25 Date Recorded Body height Body temperature Oxygen saturation Oxygen saturation in Arterial blood by Pulse oximetry Heart rate Respiratory rate Systolic And Diastolic Provider Name and Address Organization Details Last Updated DateTime 167.64 cm 98 [degF] 98 % 98 % 100 /min 16 /min 125/80 mm[Hg] Meenu Watters MA [facility] 16:19:33 Social History Question Answer Notes LastModified by Organizat ion Details LastModified Time Tobacco Smoking Status Never Smoker Isabel morales [facility] 05/15/2017 14:04:56 Do You Have An Advance Directive? No Information not available 04/23/2018 Are You Blind Or Do You Have Difficulty Seeing? No Information not available 04/14/2021 Is Blood Transfusion Acceptable In An Emergency? Yes Information not available 04/08/2024 What Is Your Level Of Caffeine Consumption? Occasional Information not available 06/03/2024 How Much Tobacco Do You Chew? None Information not available 05/15/2017 In The 14 Days Before Symptom Onset, Have You Had Close Contact With A Laboratory-confir med COVID-19 While That Case Was Ill? No Information not available 08/13/2019 In The 14 Days Before Symptom Onset, Have You Had Close Contact With A Person Who Is Under Investigation For COVID-19 While That Person Was Ill? No Information not available 08/13/2019 Have You Been To An Area Known To Be High Risk For COVID-19? No Information not available 08/13/2019 Are You Deaf Or Do You Have Serious Difficulty Hearing? No Information not available 04/14/2021 What Type Of Diet Are You Following? REGULAR Low Sugar Information not available 12/02/2023 Which Illicit Or Recreational Drugs Have You Used? None Information not available 05/15/2017 Education 12 Some Colege Information not available 02/13/2018 What Is The Highest Grade Or Level Of School You Have Completed Or The Highest Degree You Have Received? [id number] Information not available 04/08/2024 Have There Been Any Changes To Your Family Or Social Situation? No Information no t available 04/22/2024 Are There Any Guns Present In Your Home? No Information not available 04/23/2018 Hard Of Hearing Or Deaf In One Or Both Ears? No Information not available 05/15/2017 Legally Blind In One Or Both Eyes? No Information no t available 05/15/2017 Marital Status Single Informatio n not available 02/13/2018 What Was The Date Of Your Most Recent Tobacco Screening? 07/06/2024 [email or web address] Information not available 07/06/2024 How Many Children Do You Have? 0 Information not available 02/05/2022 Performs Monthly Self-breast Exam? Yes Information no t available 05/15/2017 Do You Have Any Pets? Yes X 1 Dog Information not available 04/22/2024 Do You Use Protection During Sex? No Information not available 04/08/2024 What Is Your Relationship Status? Single Fiance Information not available 05/27/2023 Do You Use Your Seat Belt Or Car Seat Routinely? Yes Information not available 03/21/2022 Seat Belts Used Routinely Yes Information not available 04/23/2018 Are You Sexually Active? Yes Information not available 04/08/2024 Smoke Alarm In Home No Information not available 04/23/2018 Do You Have Smoke And Carbon Monoxide Detectors In Your Home? Yes Information not available 04/14/2021 Are You Passively Exposed To Smoke? No Information no t available 04/14/2021 How Much Tobacco Do You Smoke? No Information not available 05/15/2017 General Stress Level Medium Information not available 08/13/2019 Do You Use Sunscreen Routinely? No Information not available 04/23/2018 Has Tobacco Cessation Counseling Been Provided? No Information not available 02/05/2022 How Many Years Have You Smoked Tobacco? 0 Information not available 05/15/2017 Sex: Female Functional Status Question Answer Note LastModified by Organizat ion Details LastModified Time Do you use any illicit or recreational drugs? No [email or web address] Information not available 08/03/2021 Do you or have you ever used any other forms of tobacco or nicotine? No [email or web address] Information not available 11/03/2021 What is your level of alcohol consumption? None Information not available 02/14/2023 Do you or have you ever used smokeless tobacco? Never used smokeless tobacco Information not available 08/13/2019 Are you currently employed? Yes Information not available 04/14/2021 Are you able to care for yourself? 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 Information not available 02/14/2023 Do you or have you ever used e-cigarettes or vape? Never used electronic cigarettes [email or web address] Information not available 02/09/2019 What is your exercise level? Moderate 30 minute walks daily Information not available 02/14/2023 Mental Status Question Answer Note LastModified by Organization D etails LastModified Time Do you feel stressed (tense, restless, nervous, or anxious, or unable to sleep at night)? [id number] Information not available 12/02/2023 Family History Relationship Description Onset Age of this Age Resolved Age Notes LastModified by Organization Details LastModified Time Father Atrial fibrillation 67 [email or web address] Not available 1 04/07/2021 15:51:20 Father Factor V deficiency [email or web address] Not available 04/08 14:54:25 Medical History Condition Response Coronary Artery Disease N Other Y High Blood Pressure Y Atrial Fibrillation N Kidney or Bladder Problems N Thyroid Problems N GI Problems N Depression N COPD N Blood Clots N Skin Problems N Anemia N Heart Attack (AL) N Anxiety Disorder N Diabetes N Muscle, Joint, or Bone Problems N Seizures/Epilepsy N Acid Reflux (GERD) N Cancer N Stroke N Asthma N Allergies N High Cholesterol N Hepatitis N Liver Disease N Headaches N Heart Failure N Osteoporosis N Gynecological History Statement/Question Response Flow Moderate Date of LMP 08/23/2024 On BCP's at Conception? N STIs/STDs N HPV Vaccine N Duration of Flow (days) 6 Age at Menarche 10 Current Control Method None Sexually Active? Y Menses Monthly Y Date of Last Pap Smear 07/06/2024 Sexual Problems? N LMP Definite Obstetrics History GPAL:G 1 P 0 0 0 0 Immunizations Vaccine Type Date Status Note Provider Gamal devi and Address Organization Details Recorded Time COVID-19 vaccine, vector-nr, rS-Ad26, PF, 0.5 mL 05/20/2020 completed Helena Nielsen APN, FNP-C Attn: [employer] [place], [address], [place] [facility] 02/05/2022 16:04:47 Influenza, split virus, trivalent, PF 12/26/2023 completed Helena Nielsen APN, FNP-C Attn: [address] [place], [address], [place] [facility] 03/02/2024 17:12:41 Tdap 08/14/2018 [facility] 04/04/2019 02:37:36 Past Encounters Encounter ID Performer Location Encounter Start Date Encounter Closed Date Diagnosis/Indication Diagnosis SNOMED-CT Code Diagnosis ICD10 Code Diagnosis Note [id number] MD Barbara Hutchins (Adult Med) [address] [place] [address] 05/15/2017 13:44:14 05/15/2017 17:37:27 Morbid obesity 417068755 E66.01 advised low fat, low cholestero l, low carb diet, regular exercise and weight reduction. Essential hypertension 97389031 I10 has been on bp meds but has not taken since sat, bp stable today, will trial with out them, can take bp at home and if increasing , restart hctz as discussed. Adult [facility] th examination 887081885 Z00.00 Screening for disorder 582192996 Z13.9 Allergic rhinitis 479339 04 J30.9 refill montelukas t 10 mg q hs to control allergic reaction/r esponse [id number] MD Barbara Hutchins (Adult Med) [address] [place] [address] 08/13/2017 15:49:33 08/14/2017 08:23:40 Morbid obesity 672605048 E66.01 advised low fat, low cholestero l, low carb diet, regular exercise and weight reduction. Essential hypertension 96260448 I10 has been on bp meds but has not taken since sat, bp stable today, will trial with out them, can take bp at home and if increasing , restart hctz as discussed. Allergic rhinitis 987296 04 J30.9 cont montelukas t 10 mg q hs to control allergic reaction/r esponse Acute otitis media 39103 03 H65.01 right TM with erythema and purulent middle ear fluid, start amoxicilli n 500 mg capsule, take 2 three times a day for 7 days, may increase probiotics in between times. Try foods such as yogurt and naturally fermented veggies and drinks like kefir and kombucha. Loss of hair 673286061 L 65.9 reported by pt, needs labs checked as discussed; [id number] MD Barbara Hutchins (Adult Med) [address] [place] [address] 08/19/2017 08:28:16 08/19/2017 10:24:56 Tuberculosis screening 658718812 Z11.1 [id number] MD Barbara Hutchins (Adult Med) [address] [place] [address] 08/27/2017 08:27:13 08/27/2017 09:03:52 Essential hypertension 12733667 I10 has been on bp meds but has not taken since sat, bp stable today, will trial with out them, can take bp at home and if increasing , restart hctz as discussed. [id number] MD Barbara Hutchins (Adult Med) [address] [facility] [place] [address] 09/10/2017 09:17:16 09/10/2017 17:29:13 Dysuria 26574450 R30.0 urine dip wnl, will send for culture; dwp to try AZO and increase fluids and will call if needing abx [id number] MD Barbara Hutchins (Adult Med) [address] [place] [address] 11/14/2017 08:38:38 11/14/2017 14:08:46 Allergic rhinitis 08345102 J30.9 cont montelukas t 10 mg q hs to control allergic reaction/r esponse Essential hypertension 21562406 I10 has been on bp meds but has not taken since sat, bp stable today, will trial with out them, can take bp at home and if increasing , restart hctz as discussed. Morbid obesity 788081986 E66.01 advised low fat, low cholestero l, low carb diet, regular exercise and weight reduction. Loss of hair 654253239 L 65.9 reported by pt, needs labs checked as discussed; Low back pain 536129797 M54.5 dwp otc Excessive cerumen in ear canal 948931552 H61.22 left ear lavage with partial removal of cerumen, start debrox [id number] MD Barbara Hutchins (Adult Med) [address] [place] [address] 02/13/2018 08:23:31 02/13/2018 12:37:17 Essential hypertension 70805996 I10 bp stable today, will trial with out them, can take bp at home and if increasing , cont hctz as discussed- RTO if needing more than 3 days a week Allergic rhinitis 864324 04 J30.9 cont montelukas t 10 mg q hs to control allergic reaction/r esponse Morbid obesity 939447361 E66.01 advised low fat, low cholestero l, low carb diet, regular exercise and weight reduction. Low back pain 907711318 M54.5 dwp otc or may have ibu 800 mg tid prn [id number] MD Barbara Hutchins (Adult Med) [address] [place] [address] 04/23/2018 16:02:58 04/24/2018 09:22:12 Acute otitis media 5938038 H65.01 right TM with erythema and purulent middle ear fluid, start amoxicilli n 500 mg capsule, take 2 three times a day for 7 days, may increase probiotics in between times. Try foods such as yogurt and naturally fermented veggies and drinks like kefir and kombucha. Cough 48993290 R05 LSCTA; Tessalon perles to help with cough [id number] MD Barbara Hutchins (Adult Med) [address] [place] [address] 08/14/2018 08:20:25 08/14/2018 09:13:44 Low back pain 333935033 M54.5 dwp otc or may have ibu 800 mg tid prn Essential hypertension 59891450 I10 bp stable today, cont hctz as discussed- prn- RTO if needing more than 3 days a week Administra tion of diphtheria, pertussis, and tetanus vaccine 319565985 Z23 cdc handout provided Morbid obesity 119763515 E66.01 advised low fat, low cholestero l, low carb diet, regular exercise and weight reduction. Allergic rhinitis 724119 04 J30.9 cont otc to control allergic reaction/r esponse Adult heal th examination 025738786 Z00.01 Encouraged routine [employer], vision, dental exams, well balanced diet. 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 Allergic rhinitis 530520 04 J30.9 cont otc to control allergic reaction/r esponse [id number] MD Barbara Hutchins (Adult Med) [address] [place] [address] 08/13/2019 08:43:43 08/14/2019 11:23:08 Essential hypertension 98829976 I10 cont hctz as discussed- prn- RTO if needing more than 3 days a week Low back pain 562897273 M54.5 dwp otc or may have ibu 800 mg tid prn Morbid obesity 746945038 E66.01 advised low fat, low cholestero l, low carb diet, regular exercise and weight reduction. Allergic rhinitis 223988 04 J30.9 cont otc to control allergic reaction/r esponse Endocrine/ metabolic screening 918600714 Z13.228 Family his tory of blood coagulation disorder 8779102417 35554 Z83.2 [id number] MD Barbara Hutchins (Adult Med) [address] [place] [address] 04/14/2021 08:14:23 04/17/2021 07:37:38 Acute conjunctivitis 58344507 H10.32 right eye worse, but left eye starting as wellwill send drops, eye care advised, [id number] MD Barbara Hutchins (Adult Med) [address] [place] [address] 07/07/2021 15:27:16 07/10/2021 07:57:23 Adult health examination 081989162 Z00.01 Encouraged routine [employer], vision, dental exams, well balanced diet. Essential hypertension 87330802 I10 improved on exam Obesity 811675341 E66.9 advised low fat, low cholestero l diet, regular exercise and weight reduction. Excessive thirst 8170063 7 R63.1 will check lab [id number] MD Barbara Hutchins (Adult Med) [address] [place] [address] 08/03/2021 12:21:43 08/04/2021 08:23:15 Viral syndrome 173412146 B34.9 covid neg, neds work note Acute laryngitis 6961744 J04.0 dwp vocal rest and steroids to reduce inflammati on Type 2 addison betes mellitus 61904725 E11.9 a1c 10.1, new dxdwp diet changes, metforminw ill give 3 months then may need to add trulicity or other injection if not significan tly improved Obesity 582263937 E66.9 advised low fat, low cholestero l diet, regular exercise and weight reduction. [id number] MD Barbara Hutchins (Adult Med) [address] [place] [address] 11/03/2021 15:35:15 11/06/2021 09:30:28 Type 2 diabetes mellitus 47721849 E11.9 a1c 10.1, new dxnow 8.7 with diet changes and metformin, would like to add trulicity Obesity 607502513 E66.9 advised low fat, low cholestero l diet, regular exercise and weight reduction. Essential hypertension 64415530 I10 stable,no meds at this time [id number] MD Barbara Hutchins (Adult Med) [address] [place] [address] 02/05/2022 15:35:05 02/06/2022 12:05:33 Type 2 diabetes mellitus 80398292 E11.9 a1c 10.1, new dxnow 8.7 with diet changes and metformin, cont trulicity, a1c still over 7, will increase trulicity to 1.5 mg qwk Morbid obesity 839732519 E66.01 advised low fat, low cholestero l, low carb diet, regular exercise and weight reduction. Essential hypertension 02384229 I10 stable,no meds at this time Impacted c erumen of bilateral ears 6778750364 186004 H61.23 excessive ear wax, lavage in office, dwp debrox use to right ear Tingling of skin 3294490 07 R20.2 tingling to upper left shoulder, no pain, exam wnl, dwp will monitor for new onset symptoms [id number] MD Barbara Hutchins (Adult Med) [address] [place] [address] 03/21/2022 16:27:04 04/03/2022 16:03:10 Pain in left foot 3411360844 10938 M79.672 bruising, mild pain, will get xray Obesity 356412690 E66.9 advised low fat, low cholestero l diet, regular exercise and weight reduction. [id number] MD Barbara Hutchins (Adult Med) [address] [place] [address] 05/09/2022 15:29:03 05/10/2022 11:09:47 Type 2 diabetes mellitus 70647478 E11.9 -a1c 10.1, new dx-now 8.7 with diet changes and metformin, -cont trulicity, a1c still over 7, will increase trulicity to 1.5 mg qwk-a1c is now 6.8 pt would like to try other med-mounfrancisco louis Morbid obesity 643691561 E66.01 advised low fat, low cholestero l, low carb diet, regular exercise and weight reduction. Essential hypertension 34912185 I10 stable,no meds at this time Vitamin D deficiency 347 51349 E55.9 low , start high dose weekly replacemen t Pain of le ft shoulder joint [id number] 7595767 M25.512 will get xrayrice advised [id number] MD Barbara Hutchins (Adult Med) [address] [place] [address] 08/16/2022 16:00:39 08/20/2022 10:34:39 Type 2 diabetes mellitus 43428707 E11.9 -a1c 10.1, new dx-now 8.7 with diet changes and metformin, -cont trulicity, a1c still over 7, will increase trulicity to 1.5 mg q wk-a1c is now 6.8 pt would like to try other med-mounja ro Vitamin D deficiency 347 03342 E55.9 low , start high dose weekly replacemen t Obesity 936045589 E66.9 advised low fat, low cholestero l diet, regular exercise and weight reduction. Essential hypertension 59121582 I10 stable,no meds at this time Endocrine/ metabolic screening 516210386 Z13.228 Low back pain 287433186 M54.50 prn ibu Impacted c erumen in left ear 4306712176 991766 H61.22 will flush in office [id number] MD Barbara Hutchins (Adult Med) [address] [place] [address] 11/06/2022 15:39:32 11/07/2022 09:36:16 Type 2 diabetes mellitus 20423721 E11.9 -a1c 10.1, at new dx-now 8.7 with diet changes and metformin, -added trulicity- a1c was 6.8 is now 7.3, has been on both trulicity and metformin, cannot tolerate daily injection; pt would like to try other med-mounja ro Generalize d anxiety disorder 08207139 F41.1 dwp buspar 5 mg R/B/A/SE of antidepres yuliet medication discussed such as gastrointe stinal s/e, mood irritabili ty, Suicidal ideation, risk of richard. F/U in 3-4 weeks. Call with concerns and questions. Compliance with medication s and follow up care strongly recommende d. Call 911 or ER for crises. Obesity 272659625 E66.9 advised low fat, low cholestero l diet, regular exercise and weight reduction. 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 Pt will check with her plan and let us know if she needs rx Generalize d anxiety disorder 92176292 F41.1 dwp buspar 5 mg R/B/A/SE of antidepres yuliet medication discussed such as gastrointe stinal s/e, mood irritabili ty, Suicidal ideation, risk of richard. Call with concerns and questions. Compliance with medication s and follow up care strongly recommende d. Call 911 or ER for crises. Obesity 554320609 E66.9 advised low fat, low cholestero l diet, regular exercise and weight reduction. Essential hypertension 59217122 I10 stable,no meds at this time Burn of hand 17289154 T2 3.001A index finger burn last week on glue gun;ulcera tion approx 0.5 cm with erythema,g ave silvadene, start kflex if not improving [id number] MD Barbara WORLEY (TRANSPORTATION LEAD) [address] [place] [address] 04/25/2023 15:23:45 05/07/2023 14:19:59 Acute upper respiratory infection 32624197 J06.9 - Discussed supportive care at home with emphasis on maintainin g adequate hydration - Provided anticipato ry guidance for when to call office and/or seek emergency treatment - Follow up as needed Wheezing 13438070 R06.2 - Diffuse wheezing noted on exam without prior history of asthma- Suspect virus-asso ciated wheeze; cannot rule out asthma vs allergy-in duced wheezing (dust vs mold vs dog dander)- Will treat with albuterol inhaler as needed- Recommend following up with PCP to obtain PFTs after infection resolves to determine whether a diagnosis of asthma can be made [id number] MD Barbara Hutchins (Adult Med) [address] [place] [address] 05/27/2023 11:47:55 05/28/2023 16:38:06 Type 2 diabetes mellitus 80562378 E11.9 -a1c 10.1, at new dx-now 8.7 with diet changes and metformin- a1c was 6.8 is now 7.3, has been on both trulicity and metformin, cannot tolerate daily injection; pt would like to try other med-brittni alan not being covered by state insurance, not sure if meds will be? Pt will check with her plan and let us know if she needs rx Obesity 937081220 E66.9 advised low fat, low cholestero l diet, regular exercise and weight reduction. Generalize d anxiety disorder 58549931 F41.1 dwp buspar 5 mg- will increase to 7.5 R/B/A/SE of antidepres yuliet medication discussed such as gastrointe stinal s/e, mood irritabili ty, Suicidal ideation, risk of richard. Call with concerns and questions. Compliance with medication s and follow up care strongly recommende d. Call 911 or ER for crises. Essential hypertension 01370765 I10 stable,no meds at this time Allergic rhinitis 577295 04 J30.9 cont otc to control allergic reaction/r esponse Vitamin D deficiency 347 03188 E55.9 low , start high dose weekly replacemen t [id number] MD Barbara Hutchins (Adult Med) [address] [place] [address] 08/28/2023 16:17:04 08/28/2023 18:42:23 Vitamin D deficiency 11296040 E55.9 low , start high dose weekly replacemen t Type 2 addison betes mellitus 42222470 E11.9 -a1c 10.1, at new dx-now 8.7 with diet changes and metformin- a1c was 6.8 is now 7.3, has been on both trulicity and metformin, cannot tolerate daily injection; pt would like to try other med-mounja roa1c today is: 9.3, was out of medication and now restarted 2 weeks ago Obesity 664041315 E66.9 advised low fat, low cholestero l diet, regular exercise and weight reduction. Generalize d anxiety disorder 77962652 F41.1 dwp buspar 7.5 R/B/A/SE of antidepres yuliet medication discussed such as gastrointe stinal s/e, mood irritabili ty, Suicidal ideation, risk of richard. Call with concerns and questions. Compliance with medication s and follow up care strongly recommende d. Call 911 or ER for crises. Essential hypertension 15379616 I10 stable, no meds at this time Allergic rhinitis 124816 04 J30.9 cont otc to control allergic reaction/r esponse Impacted c erumen in left ear 2488539134 516655 H61.22 dwp using drops at home [id number] Andreina monge, MD [facility] (Adult Med) [address] [place] [address] 12/02/2023 16:31:42 12/09/2023 16:25:13 Type 2 diabetes mellitus 15707418 E11.9 -a1c 10.1, at new dxhas been on both trulicity and metformin, cannot tolerate daily injection; pt would like to try other med-mounja roa1c today is: 9.1, Gastroesop hageal reflux disease without esophagitis 062604218 K21.9 advised diet changessta rt acid framer Strain of muscle and/or tendon of elbow region 803554826 S56.912A left elbow ttp lateral epicondyle advised brace,pt will trial this, if not improved, will refer Generalize d anxiety disorder 33790971 F41.1 dwp buspar 7.5, will increase to 10 mg R/B/A/SE of antidepres yuliet medication discussed such as gastrointe stinal s/e, mood irritabili ty, Suicidal ideation, risk of richard. Call with concerns and questions. Compliance with medication s and follow up care strongly recommende d. Call 911 or ER for crises. [id number] MD Barbara Hutchins (Adult Med) [address] [place] [address] 03/02/2024 15:51:04 03/04/2024 17:09:19 Type 2 diabetes mellitus 42686407 E11.9 -a1c 10.1, at new dxcont metformin, cannot tolerate daily injection; -mounjaro- has been outa1c today is: 9.2 Generalize d anxiety disorder 08259976 F41.1 dwp buspar 10 mg R/B/A/SE of antidepres yuliet medication discussed such as gastrointe stinal s/e, mood irritabili ty, Suicidal ideation, risk of richard. Call with concerns and questions. Compliance with medication s and follow up care strongly recommende d. Call 911 or ER for crises. Uterine fibroid polyp 25 5402654 D25.9 7.[address] on 02/20/24ref erral to loader helper sorting yard Tachycardia 1134900 R00. 0 at ER, was started on beta ric, good today Vitamin D deficiency 347 89036 E55.9 resume high dose weekly replacemen t [id number] MD Juliette Piper 14 OB [address] [facility] [address] [place] [address] 04/08/2024 13:40:52 04/09/2024 15:45:25 Uterine fibroid polyp 989703725 D25.9 --would like to discuss options for removal of uterine leiomyoma Obesity 996805467 E66.9 Depression screening 171 549802 Z13.31 --PHQ9=0 [id number] MD Juliette Piper 14 OB [address] [facility] [address] [place], [place] [address] [address] 04/22/2024 14:02:15 05/01/2024 12:15:33 Gynecologic examination 66044626 Z01.419 --CBE and pap smear performed Morbid obesity 617909657 E66.01 [id number] MD Barbara Hucthins (Adult Med) [address] [place] [address] 06/03/2024 15:38:05 06/09/2024 14:29:38 Type 2 diabetes mellitus 85195902 E11.9 -a1c 10.1, at dx, last was 9.2-cont metformin, -mounjaro 5 mg, has been tolerating okay except for recent sour stomach, we will keep it the current dose while initiating acid framer medication to see if that improves symptoms,a 1c today is: 9.5Discuss with patient working on stress management , increasing her exercise, increase water intake, decrease sugar intake Offered referral to Endocrine and/or dietitian, patient refuses at this time Generalize d anxiety disorder [id number] F41.1 dwp buspar 10 mg R/B/A/SE of antidepres yuliet medication discussed such as gastrointe stinal s/e, mood irritabili ty, Suicidal ideation, risk of richard. Call with concerns and questions. Compliance with medication s and follow up care strongly recommende d. Call 911 or ER for crises. Vitamin D deficiency [phone] E55.9 resume high dose weekly replacemen t Gastroesop hageal reflux disease without esophagitis [id number] K21.9 advised diet changessta rt acid framer Allergic rhinitis 047154 04 J30.9 cont otc to control allergic reaction/r esponse Essential hypertension 85697400 I10 stable, currently on lisinopril and metoprolol Atopic dermatitis 061060 01 L20.9 Macular erythemato us rash to left lower extremity posteriorl y, denies itching, denies pain, has not tried putting anything on rash at this time Advise patient to try topical steroid and/or thick emollient lotionCont act office if worsening [id number] MD Juliette Piper 14 OB [address] [facility] [address] [place] [address] 07/06/2024 16:32:50 07/16/2024 11:40:16 Gynecologic examination [id number] Z01.419 -Pap smear performed Morbid obesity [id number] E66.01 [id number] MD Barbara Hutchins (Adult Med) [address] [place] [address] 09/07/2024 15:50:48 09/08/2024 10:43:05 Type 2 diabetes mellitus 38553111 E11.9 -a1c 10.1, at dx, last was 9.5-cont metformin, -mounjaro 5 mg, has been tolerating okay except for recent sour stomach, we will keep it the current dose while initiating acid framer medication to see if that improves symptoms,a 1c today is: 10.2Discus s with patient working on stress management , increasing her exercise, increase water intake, decrease sugar intakept has not been following DM diet, has been eating very bad- her words, dwp diet changesOff ered referral to Endocrine and/or dietitian, patient refuses at this time Generalize d anxiety disorder [id number] F41.1 dwp buspar 10 mg R/B/A/SE of antidepres yuliet medication discussed such as gastrointe stinal s/e, mood irritabili ty, Suicidal ideation, risk of richard. Call with concerns and questions. Compliance with medication s and follow up care strongly recommende d. Call 911 or ER for crises. Vitamin D deficiency [phone] E55.9 resume high dose weekly replacemen t Gastroesop hageal reflux disease without esophagitis [id number] K21.9 advised diet changessta rt acid framer Allergic rhinitis 199993 04 J30.9 cont otc to control allergic reaction/r esponse Essential hypertension 67609508 I10 stable, currently on lisinopril and metoprolol Atopic dermatitis 165556 01 L20.9 Macular erythemato us rash to left lower extremity posteriorl y, denies itching, denies pain, has not tried putting anything on rash at this timeprn steroid creamAdvis e patient to try topical steroid and/or thick emollient lotionCont act office if worsening Varicose v ein of lower leg [id number] I83.90 BLE- non painful,wi ll refer if worsening Obese class III [id number] 5 E66.813 advised low fat, low cholestero l, low carb diet, regular exercise and weight reduction. Health Concerns Section Related Observation LastModified by Organization Detai ls LastModified Time None Recorded Concern Status LastModified by Organization Details LastModified Time None Recorded Advance Directives Directive N: Payers Insurance Date Sequence Insurance Name Policy Number Policy Boudreaux Covered Member ID Boudreaux Member ID Guarantor Name 11/02/2021 SLIDING FEE SCHEDULE - DISCOUNT Sadaf Ortiz 02/14/2023 2 *SELF PAY* Boubacar Ortiz 07/06/2024 1 [facility] - DOS ON OR AFTER 20 (MEDICAID REPLACEMENT - HMO) Sadaf Ortiz [id number] Sadaf Ortiz 07/06/2024 1 [facility] - DOS PRIOR TO 2020 (MEDICAID REPLACEMENT - HMO) Sadaf Ortiz [id number] Sadaf Ortiz 09/04/2024 1 [facility] [id number] Sadaf Ortiz [id number] Sadaf Ortiz 03/27/2023 2 *SELF PAY* Boubacar Ortiz 02/14/2023 3 *SELF PAY* Boubacar Ortiz 02/25/2023 SLIDING FEE SCHEDULE - DISCOUNT Sadaf Ortiz Notes Date Note Type Note Provider Name and Address Organization Details Recorded Time 04/08/2024 text/html Patient presents as a referral for uterine leiomyoma. She states that she had severe abdominal pain once and was seen in the ED, a CT was performed and a large uterine fibroid was noted. She states that she has heavy periods for the first two days of her cycle but denies excessive bleeding. The patient also admits to increased bladder pressure. She admits that she desires children. Zach Cameron MD Attn: Accounting, [place], [address], [place] - [facility] 04/08/2024 16:10:39 04/22/2024 text/html Annual GYNReport ed bypatient.History: no gynecologic complaints Menstrual cycle:Normal menses Urinary symptoms:No hematuria; No incontinence Vulva:No genital lesion Vagina:Normal vaginal discharge Breast:No breast pain; No breast lump; No nipple discharge Current Contraception:Robyn h control not practiced Sexual complaints:No sexual complaints; No pain during intercourse; Normal libido Menopausal Symptoms:No menopausal symptoms; Normal vaginal lubrication Psychological symptoms:No depression; No anxiety; No PMDD Zach Cameron MD Attn: Accounting, [address], [place], [address], [facility] 04/22/2024 15:25:07 06/03/2024 text/html red rash on back of left calf- denies itching. states her dad lost her meds so she had to get a partial rx- needs med refills pt c/o seasonal allergies-otc meds to take. would like prescribed allergy meds. DM- here to follow up, changed diet to only water, steaming veggies, avoiding grains, sweets; working out; htn- no cp or sob Helena Nielsen APN, ELAINE-C Attn: Accounting[address] [facility], [place], [address], [facility] 06/03/2024 18:33:19 07/06/2024 text/html Patient presents for pap smear because the last pp smear was not picked up by [facility]. She denies any other complaints. Zach Cameron MD Attn: Accounting[address] [facility], [place], [address], [facility] 07/06/2024 17:35:37 09/07/2024 text/html pt c/o seasonal allergies-otc meds to take. improved with prescribed allergy meds. DM- here to follow up, changed diet to only water, steaming veggies, avoiding grains, sweets; working out; htn- no cp or sob c/o a spot on the back of her right leg that just popped up. not painful, just there Helena Nielsen APN, ELAINE-C Attn: Accounting,[address] [facility], [place], [address], [facility] 09/07/2024 16:55:41 OBGyn Episode No OBEpisode recorded.
[2024-09-28 10:32] VITALS: BP 130/80; PULSE 85; RESP 20; TEMP 36.4; O2SAT 99
--- NOTE | 2024-09-28 10:40 | ED.GENADULT ---
HPI - General Adult General Chief complaint: Unspecified Stated complaint: needs note for work Time Seen by Provider: 09/28/24 10:35 Source: patient and RN notes reviewed Mode of arrival: ambulatory Limitations: no limitations History of Present Illness HPI narrative: 39-year-old female presents [facility] needing clearance for work. Patient said approximately 6 days ago she states she had a GI illness causing nausea, vomiting, diarrhea for approximately 2 days. Patient states her symptoms have fully resolved she is feeling better. Patient said she cannot go back to work without a work note. Patient denies any symptoms currently. Related Data Home Medications ?Medication ?Instructions ?Recorded ?Confirmed ?Last Taken ?Type metformin 500 mg tablet 500 mg PO BID 07/28/22 06/27/23 Unknown History buspirone 7.5 mg tablet mg 06/27/23 Unknown History tirzepatide 5 mg/0.5 mL 5 mg subcut WEEKLY 06/27/23 06/27/23 Unknown History subcutaneous pen injector (Mounjaro) cetirizine 10 mg tablet mg 09/28/24 Unknown History lisinopril 5 mg tablet mg 09/28/24 Unknown History metoprolol tartrate 25 mg tablet mg 09/28/24 Unknown History Allergies Allergy/AdvReac Type Severity Reaction Status Date / Time No Known Allergies Allergy Verified 06/27/23 18:49 Review of Systems Review of Systems: CONSTITUTIONAL: Denies fever, chills, or sweats. EYES: Denies visual changes, redness, or discharge. ENT: Denies rhinorrhea, congestion, sore throat, or otalgia. CARDIOVASCULAR: Denies chest pain, palpitations, or edema. RESPIRATORY: Denies cough or dyspnea. GASTROINTESTINAL: Denies abdominal pain, nausea, vomiting, or diarrhea. GENITOURINARY: Denies dysuria or hematuria. SKIN: Denies rash or itching. MUSCULOSKELETAL: Denies back pain, joint pain, or myalgia. NEUROLOGIC: Denies headache, numbness, or weakness. PSYCHIATRIC: Denies anxiety or depression. All other systems reviewed are negative, except as documented in HPI. [facility] Family History Family History Grandparent Family history of lung cancer Social History Social History Smoking status: Never smoker Alcohol intake: never Comments At the time of my signature, I reviewed and agree with the nursing past medical, surgical, social, and family history. There is no relevant family history pertinent to the patient complaint. Exam Narrative: GENERAL: This is a well-nourished, well-developed adult, in no apparent distress. They are non ill-appearing, nontoxic appearing. HEAD: normocephalic, atraumatic. EYES: Sclera clear/white. Conjunctiva normal. Vision is grossly intact. Extraocular movements intact EARS: External ears normal, Hearing grossly intact. NOSE: External nose normal THROAT: Mucous membranes moist NECK: Neck supple, non-tender without lymphadenopathy, masses or thyromegaly. CARDIOVASCULAR: Regular rate and rhythm without murmurs, gallops, or rubs. RESPIRATORY: Clear to auscultation. Breath sounds equal bilaterally. No wheezes, rales, or rhonchi. GASTROINTESTINAL: Abdomen soft, non-tender, nondistended. SKIN: warm, Dry, intact with no suspicious lesions or rash, good texture and turgor. NEURO: awake, alert, and oriented to person, place and time. There were no obvious focal neurologic abnormalities. EXTREMITIES: No joint tenderness, effusion, or edema noted. Course Course Emergency Course: Portions of this record may have been created with voice recognition software Level of Care: Express Care Visit Vital Signs Vital signs: Vital Signs Temperature 97.6 F 09/28/24 10:32 Pulse Rate 85 09/28/24 10:32 Respiratory Rate 09/28/24 10:32 Blood Pressure 130/80 09/28/24 10:32 Pulse Oximetry 99 09/28/24 10:32 Oxygen Delivery Room Air 09/28/24 10:32 Temperature 97.6 F 09/28/24 10:32 Pulse Rate 85 09/28/24 10:32 Respiratory Rate 20 09/28/24 10:32 Blood Pressure 130/80 09/28/24 10:32 Pulse Oximetry 99 09/28/24 10:32 Oxygen Delivery Room Air 09/28/24 10:32 Reviewed Medical Decision Making MDM Narrative Medical decision making narrative: Patient well-appearing, no issues today. Patient is cleared to return to work. Discussed physical exam findings. Advised supportive measures and signs/symptoms to go to the ER. Pt is appropriate for outpt treatment and f/u. Differential Diagnosis Differential Diagnosis: Wellness exam, gastroenteritis, food poisoning Vital Signs Vital Signs: Vital Signs Temperature 97.6 F 09/28/24 10:32 Pulse Rate 85 09/28/24 10:32 Respiratory Rate 20 09/28/24 10:32 Blood Pressure 130/80 09/28/24 10:32 Pulse Oximetry 99 09/28/24 10:32 Oxygen Delivery Room Air 09/28/24 10:32 Temperature 97.6 F 09/28/24 10:32 Pulse Rate 85 09/28/24 10:32 Respiratory Rate 20 09/28/24 10:32 Blood Pressure 130/80 09/28/24 10:32 Pulse Oximetry 99 09/28/24 10:32 Oxygen Delivery Room Air 09/28/24 10:32 Critical Care Time Critical Care Time Critical Care Time: No Discharge Plan Discharge Clinical Impression: Well adult exam Patient Disposition: Home Condition: Stable Instructions: Antibiotic Form Additional Instructions: Follow-up PCP as needed. Patient Language: Kazakh Prescriptions: No Action buspirone 7.5 mg tablet Mounjaro 5 mg/0.5 mL pen injector 5 mg SUBCUT WEEKLY cetirizine 10 mg tablet lisinopril 5 mg tablet metoprolol tartrate 25 mg tablet metformin 500 mg tablet 500 mg PO BID Follow-up/Referrals: Turcios,Helena Cesar APN [Primary Care Provider] - Stand Alone Forms: Work/School Release IP Time of Disposition: 10:39
== END 2024-09-28 10:45 | disposition home or self-care (01) ==
PROVIDERS: PCP Nurse Practitioner Family
DX: Z00.00 Encounter for general adult medical examination without abnormal findings (principal)
CPT/HCPCS: 99211; G0463